=== PATIENT | male | born 1980 | race African-American/Black ===

== ENCOUNTER 2018-02-26 10:29 | Inpatient (IN) | payer OTHER ==
[2018-02-26 11:11] VITALS: BMI 19.1
--- NOTE | 2018-02-26 16:15 | HP ---
CIWA Score - CIWA Score Nausea/Vomitin-No Nausea/No Vomiting Muscle Tremors: 4-Moderate,w/Arms Extend Anxiety: 4-Mod. Anxious/Guarded Agitation: 0-Normal Activity Paroxysmal Sweats: No Perspiration Orientation: 0-Oriented Tacttile Disturbances: 0-None Auditory Disturbances: 0-None Visual Disturbances: 0-None Headache: 0-None Present CIWA-Ar Total Score: 8 Admission ROS BHS - HPI Allergies/Adverse Reactions: Allergies Allergy/AdvReac Type Severity Reaction Status Date / Time No Known Allergies Allergy Verified 02/26/18 14:26 History of Present Illness: patient reports etoh use 3 x/day every 2-3 days , reports 4 cups of vodka , reports tremors if not drinking sometimes , denies blackouts, seizures . Pt reports he was referred by [employer] due to incident at work . denies illicits tobacco : denies pmhx/pshx : left eye 2003 , detached retina , decreased vision . legal : denies Exam Limitations: No Limitations - Ebola screening Have you traveled outside of the country in the last 21 days: No Have you had contact with anyone from an Ebola affected area: No Have you been sick,other than usual withdrawal symptoms: No Do you have a fever: No - Review of Systems Constitutional: No Symptoms Reported EENT: reports: Blurred Vision Respiratory: reports: No Symptoms reported Cardiac: reports: No Symptoms Reported GI: reports: No Symptoms Reported : reports: No Symptoms Reported Musculoskeletal: reports: No Symptoms Reported Integumentary: reports: No Symptoms Reported Neuro: reports: No Symptoms reported Endocrine: reports: No Symptoms Reported Psychiatric: reports: No Sypmtoms Reported, Judgement Intact, Orientated x3 Other Systems: Reviewed and Negative Patient History - Patient Medical History Hx Asthma: No Hx Chronic Obstructive Pulmonary Disease (COPD): No Hx Cardiac Disorders: No Hx Hypertension: No 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) Hx Diabetes: No Hx Gastrointestinal Disorders: No Hx Genitourinary Disorders: No Hx Sexually Transmitted Disorders: No Hx Renal Disease (ESRD): No Hx Depression: No Hx Suicide Attempt: No Hx Schizophrenia: No - Patient Surgical History Past Surgical History: Yes Hx Neurologic Surgery: No Hx Cataract Extraction: No Hx Cardiac Surgery: No Hx Lung Surgery: No Hx Breast Surgery: No Hx Breast Biopsy: No Hx Abdominal Surgery: No Hx Appendectomy: No Hx Cholecystectomy: No Hx Genitourinary Surgery: No Hx Section: No Hx Orthopedic Surgery: No Other Surgical History: EYE SURGERY IN 2004 Anesthesia Reaction: No - PPD History Previous Implant?: Yes Documented Results: Negative w/o proof - Smoking Cessation Smoking history: Never smoked Have you smoked in the past 12 months: No Hx Chewing Tobacco Use: No - Substances Abused Alcohol Route: Oral Frequency: Daily Amount used: 1 1/2 PINTS OF VODKA Age of first use: 19 Date of Last Use: 02/26/18 Family Disease History - Family Disease History Family History: Denies Admission Physical Exam [facility] - Vital Signs Vital Signs: Vital Signs - 24 hr 02/26/18 11:05 Temperature 98.7 F Pulse Rate 66 Respiratory 19 Rate Blood Pressure 135/79 - Physical General Appearance: Yes: No Apparent Distress, Nourished, Appropriately Dressed , Mild Distress, Tremorous, Anxious HEENTM: Yes: Within Normal Limits, EOMI, Hearing grossly Normal, Normal ENT Inspection, Normocephalic, Normal Voice, GUILLE, Pharynx Normal, Other (left eye palpebral ptosis , left eye decreased vision) Respiratory: Yes: Within Normal Limits, Chest Non-Tender, Lungs Clear, Normal Breath Sounds, No Respiratory Distress, No Accessory Muscle Use Neck: Yes: Within Normal Limits, No masses,lesions,Nodules, Trachea in good position Cardiology: Yes: Regular Rhythm, Regular Rate, Tachycardia Abdominal: Yes: Within Normal Limits, Normal Bowel Sounds, Non Tender, Flat, Soft Genitourinary: Yes: Within Normal Limits Back: Yes: Within Normal Limits, Normal Inspection Musculoskeletal: Yes: Within Normal Limits, full range of Motion, Gait Steady, Pelvis Stable Extremities: Yes: Normal Capillary Refill, Normal Inspection, Normal Range of Motion, Non-Tender, Tremors Neurological: Yes: Within Normal Limits, Fully Oriented, Alert, Motor Strength 5 /5, Normal Mood/Affect, Normal Response Integumentary: Yes: Within Normal Limits, Normal Color, Dry, Warm Lymphatic: Yes: Within Normal Limits - Diagnostic (1) Alcohol withdrawal Current Visit: Yes Status: Acute Qualifiers: Complication of substance-induced condition: uncomplicated Qualified Code(s ): F10.230 - Alcohol dependence with withdrawal, uncomplicated BHS Breath Alcohol Content Breath Alcohol Content: 0.008 Urine Drug Screen - Results Drug Screen Negative: Yes
[2018-02-26] MEDS ORDERED: MAGNESIUM HYDROX 2400MG/30ML ORAL SUSPENSION 30 ML CUP PO PRN (16:16)
[2018-02-26] MEDS ORDERED: P-EPHED 60MG/TRIPROLIDI 2.5MG TABLET PO PRN (16:16)
[2018-02-26] MEDS ORDERED: IBUPROFEN 400 MG TABLET (FP) PO PRN (16:16)
[2018-02-26] MEDS ORDERED: guaiFENesin/D-METHORPHAN HB 10 ML UNIT-DOSE CUPS PO PRN (16:16)
[2018-02-26] MEDS ORDERED: MAG HYDROX/AL HYDROX/SIMETH 30 ML UNIT-DOSE CUP PO PRN (16:16)
[2018-02-26] MEDS ORDERED: LOPERAMIDE HCL 2 MG CAPSULE PO PRN (16:16)
[2018-02-26] MEDS ORDERED: chlordiazePOXIDE HCL 25 MG CAPSULE PO PRN (16:16)
[2018-02-26] MEDS ORDERED: MENTHOL/PHENOL 1 EACH UD MM PRN (16:16)
[2018-02-26] MEDS ORDERED: ACETAMINOPHEN 325 MG TABLET (FP) PO PRN (16:16)
[2018-02-26] MEDS ORDERED: MAGNESIUM CITRATE 300 ML BOTTLE PO PRN (16:16)
[2018-02-26] MEDS ORDERED: MELATONIN 5 MG TABLETS PO PRN (22:00)
[2018-02-26] MEDS: THIAMINE HCL 100 MG TABLET (FP) PO SCH (22:33)
[2018-02-26] MEDS: chlordiazePOXIDE HCL 25 MG CAPSULE PO SCH (22:33)
[2018-02-27] MEDS: chlordiazePOXIDE HCL 25 MG CAPSULE PO SCH ×3 (05:39→17:34)
[2018-02-27] MEDS: PRENATAL VITAMINS W/ FOLIC ACID TABLET (FP) PO SCH (10:04)
--- NOTE | 2018-02-27 10:44 | PN ---
S CIWA - CIWA Score Nausea/Vomitin-No Nausea/No Vomiting Muscle Tremors: 3 Anxiety: 4-Mod. Anxious/Guarded Agitation: 3 Paroxysmal Sweats: 1-Minimal Palms Moist Orientation: 0-Oriented Tacttile Disturbances: 0-None Auditory Disturbances: 0-None Visual Disturbances: 0-None Headache: 0-None Present CIWA-Ar Total Score: 11 BHS Progress Note (SOAP) Subjective: SLIGHT ANXIETY,TREMORS. OOB AMBULATING WITH STEADY GAIT. PT REPORTS DETOX TAPER EFFECTIVE. Objective: 02/27/18 10:43 Vital Signs 02/27/18 02/27/18 02/27/18 03:30 06:02 09:10 Temperature 98.3 F 97.7 F Pulse Rate 66 84 Respiratory 18 18 18 Rate Blood Pressure 122/81 129/85 LABS PENDING Assessment: 02/27/18 10:43 WITHDRAWAL SX Plan: CONTINUE DETOX
[2018-02-27 10:46] LABS: HEMATOCRIT 34.2 % (35.4-49); HEMOGLOBIN 11.2 GM/dL (11.7-16.9); MCH 32.2 pg (25.7-33.7); MCHC 32.7 g/dl (32.0-35.9); MEAN CELL VOLUME 98.6 fl (80-96); MEAN PLT VOLUME 10.1 fl (7.5-11.1); PLATELET COUNT 89 K/MM3 (134-434); RBC 3.47 M/mm3 (4.00-5.60); RDW 14.5 % (11.9-15.9); WHITE BLOOD COUNT 5.4 K/mm3 (4.0-10.0)
[2018-02-27 10:55] LABS: ALBUMIN 3.1 g/dl (3.4-5.0); ALK PHOS 98 U/L (45-117); ANION GAP 9 MMOL/L (8-16); BILIRUBIN,TOTAL 0.7 mg/dL (0.2-1); BLOOD UREA NITROGEN 6 mg/dL (7-18); CALCIUM 7.2 mg/dL (8.5-10.1); CHLORIDE 109 mmol/L (98-107); CO2 27 mmol/L (21-32); CREATININE 0.5 mg/dL (0.55-1.3); GLUCOSE,RANDOM 86 mg/dL (74-106); POTASSIUM 3.7 mmol/L (3.5-5.1); SGOT/AST 102 U/L (15-37); SGPT/ALT 97 U/L (13-61); SODIUM 144 mmol/L (136-145); TOT PROT 6.1 g/dl (6.4-8.2)
[2018-02-27 10:58] LABS: URINE APPEARANCE CLEAR; URINE BILIRUBIN NEGATIVE (<2.0 mg/dL); URINE COLOR LTYELLOW; URINE GLUCOSE (UA) NEGATIVE (NEGATIVE); URINE KETONE NEGATIVE (NEGATIVE); URINE LEUK ESTERASE NEGATIVE (NEGATIVE); URINE NITRITE NEGATIVE (NEGATIVE); URINE PROTEIN NEGATIVE (NEGATIVE); URINE UROBILINOGEN NEGATIVE mg/dL (0.2-1.0)
--- NOTE | 2018-02-27 15:52 | EKG ---
Test Reason : Blood Pressure : / mmHG Vent. Rate : 081 BPM Atrial Rate : 081 BPM P-R Int : 128 ms QRS Dur : 106 ms QT Int : 360 ms P-R-T Axes : 064 084 058 degrees QTc Int : 418 ms NORMAL SINUS RHYTHM VOLTAGE CRITERIA FOR LEFT VENTRICULAR HYPERTROPHY ABNORMAL ECG NO PREVIOUS ECGS AVAILABLE Confirmed by MD Barber, Suhas ([id number]) on 02/27/2018 3:51:47 PM Referred By: Confirmed By:Suhas Blandon MD
[2018-02-27] MEDS: THIAMINE HCL 100 MG TABLET (FP) PO SCH (22:10)
[2018-02-27] MEDS: chlordiazePOXIDE 5 MG CAPSULE PO SCH (22:11)
[2018-02-28] MEDS: chlordiazePOXIDE 5 MG CAPSULE PO SCH ×4 (05:14→22:31)
[2018-02-28] MEDS: PRENATAL VITAMINS W/ FOLIC ACID TABLET (FP) PO SCH (10:15)
--- NOTE | 2018-02-28 14:29 | PN ---
S CIWA - CIWA Score Nausea/Vomitin Muscle Tremors: 4-Moderate,w/Arms Extend Anxiety: 4-Mod. Anxious/Guarded Agitation: 4-Moderately Restless Paroxysmal Sweats: 3 Orientation: 0-Oriented Tacttile Disturbances: 0-None Auditory Disturbances: 0-None Visual Disturbances: 0-None Headache: 1-Very Mild CIWA-Ar Total Score: 19 BHS Progress Note (SOAP) Subjective: Tremor, interrupted sleep, sweating Objective: 02/28/18 14:28 Last Vital Signs Temp Pulse Resp BP Pulse Ox 97.0 F L 82 18 132/87 02/28/18 13:34 02/28/18 13:34 02/28/18 13:34 02/28/18 13:34 Laboratory Tests 02/27/18 02/27/18 02/27/18 07:50 07:50 07:50 WBC 5.4 RBC 3.47 L Hgb 11.2 L Hct 34.2 L MCV 98.6 H MCH 32.2 MCHC 32.7 RDW 14.5 Plt Count 89 L MPV 10.1 Sodium 144 Potassium 3.7 Chloride 109 H Carbon Dioxide 27 Anion Gap 9 BUN 6 L Creatinine 0.5 L Creat Clearance w eGFR > 60 Random Glucose 86 Calcium 7.2 L Total Bilirubin 0.7 AST 102 H ALT 97 H Alkaline Phosphatase 98 Total Protein 6.1 L Albumin 3.1 L Urine Color Urine Appearance Urine pH Ur Specific [place] Urine Protein Urine Glucose (UA) Urine Ketones Urine Blood Urine Nitrite Urine Bilirubin Urine Urobilinogen Ur Leukocyte Esterase RPR Titer Nonreactive 02/27/18 08:50 WBC RBC Hgb Hct MCV MCH MCHC RDW Plt Count MPV Sodium Potassium Chloride Carbon Dioxide Anion Gap BUN Creatinine Creat Clearance w eGFR Random Glucose Calcium Total Bilirubin AST ALT Alkaline Phosphatase Total Protein Albumin Urine Color Ltyellow Urine Appearance Clear Urine pH 6.0 Ur Specific [place] 1.006 Urine Protein Negative Urine Glucose (UA) Negative Urine Ketones Negative Urine Blood Negative Urine Nitrite Negative Urine Bilirubin Negative Urine Urobilinogen Negative Ur Leukocyte Esterase Negative RPR Titer Labs reviewed Assessment: 02/28/18 14:29 Withdrawal symptoms Plan: Continue detox
[2018-02-28] MEDS: THIAMINE HCL 100 MG TABLET (FP) PO SCH (22:31)
[2018-03-01] MEDS: chlordiazePOXIDE 5 MG CAPSULE PO SCH ×4 (05:47→22:19)
[2018-03-01] MEDS: PRENATAL VITAMINS W/ FOLIC ACID TABLET (FP) PO SCH (10:15)
--- NOTE | 2018-03-01 11:12 | PN ---
BHS Progress Note (SOAP) Subjective: Tremor Objective: 03/01/18 11:05 Last Vital Signs Temp Pulse Resp BP Pulse Ox 97.3 F L 103 H 18 123/81 03/01/18 09:52 03/01/18 09:52 03/01/18 09:52 03/01/18 09:52 Laboratory Tests 02/27/18 02/27/18 02/27/18 07:50 07:50 07:50 WBC 5.4 RBC 3.47 L Hgb 11.2 L Hct 34.2 L MCV 98.6 H MCH 32.2 MCHC 32.7 RDW 14.5 Plt Count 89 L MPV 10.1 Sodium 144 Potassium 3.7 Chloride 109 H Carbon Dioxide 27 Anion Gap 9 BUN 6 L Creatinine 0.5 L Creat Clearance w eGFR > 60 Random Glucose 86 Calcium 7.2 L Total Bilirubin 0.7 AST 102 H ALT 97 H Alkaline Phosphatase 98 Total Protein 6.1 L Albumin 3.1 L Urine Color Urine Appearance Urine pH Ur Specific [place] Urine Protein Urine Glucose (UA) Urine Ketones Urine Blood Urine Nitrite Urine Bilirubin Urine Urobilinogen Ur Leukocyte Esterase RPR Titer Nonreactive 02/27/18 08:50 WBC RBC Hgb Hct MCV MCH MCHC RDW Plt Count MPV Sodium Potassium Chloride Carbon Dioxide Anion Gap BUN Creatinine Creat Clearance w eGFR Random Glucose Calcium Total Bilirubin AST ALT Alkaline Phosphatase Total Protein Albumin Urine Color Ltyellow Urine Appearance Clear Urine pH 6.0 Ur Specific [place] 1.006 Urine Protein Negative Urine Glucose (UA) Negative Urine Ketones Negative Urine Blood Negative Urine Nitrite Negative Urine Bilirubin Negative Urine Urobilinogen Negative Ur Leukocyte Esterase Negative RPR Titer Labs reviewed Assessment: 03/01/18 11:06 Withdrawal symptoms Plan: Continue detox Encouraged PO water hydration
[2018-03-01] MEDS: THIAMINE HCL 100 MG TABLET (FP) PO SCH (22:18)
[2018-03-02] MEDS: chlordiazePOXIDE 5 MG CAPSULE PO SCH ×2 (05:42→10:21)
[2018-03-02 09:15] VITALS: BP 118/69; PULSE 110; TEMP 98.9
--- NOTE | 2018-03-02 10:02 | DS ---
[facility] Detox Discharge Summary Admission Date: 02/26/18 Discharge Date: 03/02/18 - History Present History: Alcohol Dependence Pertinent Past History: Seizure disorder - Physical Exam Results Vital Signs: Vital Signs Temperature 98.9 F 03/02/18 09:15 Pulse Rate 110 H 03/02/18 09:15 Respiratory Rate 18 03/02/18 09:15 Blood Pressure 118/69 03/02/18 09:15 O2 Sat by Pulse Oximetry (%) Pertinent Admission Physical Exam Findings: Withdrawal symptoms Laboratory Tests 02/27/18 02/27/18 02/27/18 07:50 07:50 07:50 WBC 5.4 RBC 3.47 L Hgb 11.2 L Hct 34.2 L MCV 98.6 H MCH 32.2 MCHC 32.7 RDW 14.5 Plt Count 89 L MPV 10.1 Sodium 144 Potassium 3.7 Chloride 109 H Carbon Dioxide 27 Anion Gap 9 BUN 6 L Creatinine 0.5 L Creat Clearance w eGFR > 60 Random Glucose 86 Calcium 7.2 L Total Bilirubin 0.7 AST 102 H ALT 97 H Alkaline Phosphatase 98 Total Protein 6.1 L Albumin 3.1 L Urine Color Urine Appearance Urine pH Ur Specific [place] Urine Protein Urine Glucose (UA) Urine Ketones Urine Blood Urine Nitrite Urine Bilirubin Urine Urobilinogen Ur Leukocyte Esterase RPR Titer Nonreactive 02/27/18 08:50 WBC RBC Hgb Hct MCV MCH MCHC RDW Plt Count MPV Sodium Potassium Chloride Carbon Dioxide Anion Gap BUN Creatinine Creat Clearance w eGFR Random Glucose Calcium Total Bilirubin AST ALT Alkaline Phosphatase Total Protein Albumin Urine Color Ltyellow Urine Appearance Clear Urine pH 6.0 Ur Specific [place] 1.006 Urine Protein Negative Urine Glucose (UA) Negative Urine Ketones Negative Urine Blood Negative Urine Nitrite Negative Urine Bilirubin Negative Urine Urobilinogen Negative Ur Leukocyte Esterase Negative RPR Titer Labs reviewed - Treatment Hospital Course: Detox Protocol Followed, Detoxed Safely, Responded well, Discharged Condition Good - Medication Discharge Medications: Ambulatory Orders NK [No Known Home Medication] 02/26/18 - Diagnosis (1) Seizure Current Visit: Yes Status: Chronic (2) Alcohol dependence with uncomplicated withdrawal Current Visit: Yes Status: Acute - AMA Did Patient Leave Against Medical Advice: No (F/U with your PCP within 1-2 weeks )
[2018-03-02] MEDS: PRENATAL VITAMINS W/ FOLIC ACID TABLET (FP) PO SCH (10:20)
== END 2018-03-02 11:00 | disposition home or self-care (01) | DRG 897 ==
LOC: YASAS 10:29 → Y3N 16:54
PROC: HZ2ZZZZ Detoxification Services for Substance Abuse Treatment (ICD-10-PCS; principal; 2018-02-26)
DX: F10.230 Alcohol dependence with withdrawal, uncomplicated (principal); Z86.69 Personal history of other diseases of the nervous system and sense organs; Z98.890 Other specified postprocedural states
CPT/HCPCS: 36415; 80053; 81003; 85027; 86593; 93005; 93010

== ENCOUNTER 2021-08-26 13:40 | Emergency (ER) | payer OTHER ==
[2021-08-26 13:55] VITALS: BP 141/93; TEMP 100.9; BMI 18.8
[2021-08-26] MEDS ORDERED: ACETAMINOPHEN 500 MG TABLET (FP) PO ONE (14:44)
[2021-08-26] MEDS ORDERED: ACETAMINOPHEN 500 MG TABLET (FP) ONE (14:50)
[2021-08-26 16:00] VITALS: PULSE 89
[2021-08-27 06:08] LABS: SARS-CoV-2 NAA Not Detected (Not Detected)
== END 2021-08-26 17:01 | disposition home or self-care (01) ==
LOC: JER 13:40
DX: J09.X2 Influenza due to identified novel influenza A virus with other respiratory manifestations (principal)
CPT/HCPCS: 71046-TC-FY; 87804; 99284-25; C9803-CS; U0003; U0005

== ENCOUNTER 2022-01-20 18:44 | Emergency (ER) | payer OTHER ==
[2022-01-20 18:54] VITALS: BP 144/103; PULSE 96; RESP 17; TEMP 98.2; BMI 20.1
[2022-01-20] MEDS ORDERED: DIPHTH,PERTUSS(ACELL),TET 0.5 ML DISP.SYRIN IM ONE ×2 (21:26→21:45)
== END 2022-01-20 21:55 | disposition home or self-care (01) ==
LOC: JERFT 18:44
PROC: 3E0234Z Introduction of Serum, Toxoid and Vaccine into Muscle, Percutaneous Approach (ICD-10-PCS; principal; 2022-01-20)
DX: T25.221A Burn of second degree of right foot, initial encounter (principal)
CPT/HCPCS: 90715; 99283-25

== ENCOUNTER 2024-01-21 11:04 | Emergency (ER) | payer OTHER ==
[2024-01-21 11:14] VITALS: BP 119/81; RESP 19; TEMP 98.4; BMI 19.9
[2024-01-21 12:27] VITALS: PULSE 80
[2024-01-21 13:06] LABS: HIV INTERPRETATION NEGATIVE (NEGATIVE)
== END 2024-01-21 12:00 | disposition home or self-care (01) ==
LOC: JER 11:04
DX: R11.2 Nausea with vomiting, unspecified (principal); Z20.822 Contact with and (suspected) exposure to COVID-19
CPT/HCPCS: 0241U-QW; 36415; 86803; 87389; 99283-25

== ENCOUNTER 2024-06-08 17:03 | Inpatient (IN) | payer OTHER ==
[2024-06-08 17:46] VITALS: BMI 19.2
[2024-06-08] MEDS ORDERED: ONDANSETRON *ODT* 4 MG TABLET SL PRN (20:26)
[2024-06-08] MEDS ORDERED: DICYCLOMINE HCL 10 MG CAPSULE PO PRN (20:26)
[2024-06-08] MEDS ORDERED: guaiFENesin 600 MG TABLET.ER (FP) PO PRN (20:26)
[2024-06-08] MEDS ORDERED: LOPERAMIDE HCL 2 MG CAPSULE PO PRN (20:26)
[2024-06-08] MEDS ORDERED: POLYETHYLENE GLYCOL (HEALTHYLAX) 3350 17 GM PACKET PO PRN (20:26)
[2024-06-08] MEDS ORDERED: BISMUTH SUBSALICYLATE 524 MG/30 ML PO PRN (20:26)
[2024-06-08] MEDS ORDERED: MAGNESIUM HYDROX 2400MG/30ML ORAL SUSPENSION 30 ML CUP PO PRN (20:26)
[2024-06-08] MEDS ORDERED: ACETAMINOPHEN 325 MG TABLET (FP) PO PRN (20:26)
[2024-06-08] MEDS ORDERED: IBUPROFEN 400 MG TABLET (FP) PO PRN (20:26)
[2024-06-08] MEDS ORDERED: NALOXONE (NARCAN) HCL 4 MG/0.1 ML SPRAY NS PRN (20:26)
[2024-06-08] MEDS ORDERED: MAG HYDROX/AL HYDROX/SIMETH 30 ML UNIT-DOSE CUP PO PRN (20:26)
[2024-06-08] MEDS ORDERED: BENZONATATE 200 MG CAPSULE PO PRN (20:26)
[2024-06-08] MEDS ORDERED: BENZOCAINE/MENTHOL (CHLORASEPTIC ) LOZENGE MM PRN (20:26)
[2024-06-08] MEDS: MELATONIN 5 MG TABLETS PO SCH (22:10)
[2024-06-08] MEDS: THIAMINE 100 MG TABLET PO SCH (22:11)
[2024-06-09] MEDS: PRENATAL VITAMINS W/ FOLIC ACID TABLET (FP) PO SCH (10:55)
[2024-06-09 11:14] LABS: CHLORIDE 106 mmol/L (98-107); POTASSIUM 4.2 mmol/L (3.5-5.1); SODIUM 140 mmol/L (136-145)
[2024-06-09 11:15] LABS: HEMATOCRIT 40.2 % (35.4-49); HEMOGLOBIN 13.4 GM/dL (11.7-16.9); MCH 32.7 pg (25.7-33.7); MCHC 33.3 g/dl (32.0-35.9); MEAN CELL VOLUME 98.2 fl (80-96); MEAN PLT VOLUME 8.3 fl (7.5-11.1); PLATELET COUNT 200 10^3/uL (134-434); RDW 15.3 % (11.9-15.9); WHITE BLOOD COUNT 4.2 K/mm3 (4.0-10.0)
[2024-06-09 11:17] LABS: CALCIUM 9.3 mg/dL (8.5-10.1)
[2024-06-09 11:18] LABS: ALBUMIN 3.7 g/dl (3.4-5.0); ANION GAP 7 mmol/L (4-13); BLOOD UREA NITROGEN 10.6 mg/dL (7-18); CO2 27 mmol/L (21-32); GLUCOSE,RANDOM 83 mg/dL (74-106)
[2024-06-09 11:20] LABS: CREATININE 0.8 mg/dL (0.55-1.3); SGOT/AST 53 U/L (15-37); SGPT/ALT 41 U/L (13-61)
[2024-06-09 11:23] LABS: TOT PROT 6.9 g/dl (6.4-8.2)
[2024-06-09 11:24] LABS: ALK PHOS 106 U/L (45-117)
[2024-06-09] MEDS: hydrOXYzine PAMOATE 25 MG CAPSULE (FP) PO PRN (21:52)
[2024-06-09] MEDS: METHOCARBAMOL 500 MG TABLET PO PRN (21:52)
[2024-06-10 13:11] VITALS: RESP 16
[2024-06-10] MEDS: NALOXONE (NYS OPIOID OVERDOSE PROGRAM) 4 MG/0.1 ML SPRAY NS SCH (17:55)
[2024-06-10] MEDS: METHOCARBAMOL 500 MG TABLET PO ONE (20:12)
[2024-06-10] MEDS: IBUPROFEN 600 MG TABLET (FP) PO PRN (20:12)
[2024-06-11 09:31] VITALS: BP 144/102; PULSE 69; TEMP 97.5
== END 2024-06-11 12:07 | disposition home or self-care (01) | DRG 897 ==
LOC: YASAS 17:03 → Y6N 21:22
PROVIDERS: ADMIT Psychiatry & Neurology Pain Medicine; ATTEND Family Medicine Addiction Medicine
PROC: HZ2ZZZZ Detoxification Services for Substance Abuse Treatment (ICD-10-PCS; principal; 2024-06-08)
DX: F10.20 Alcohol dependence, uncomplicated (principal); G40.909 Epilepsy, unspecified, not intractable, without status epilepticus
CPT/HCPCS: 36415; 80053; 80305; 80307; 85027; 86780; 93005; 93010